=== PATIENT | female | born 1975 | race Caucasian/White ===

== ENCOUNTER 2016-08-30 09:28 | Day surgery (SDC) | payer MEDICAID ==
[2016-08-30] MEDS ORDERED: LIDOCAINE 1% 2 ML INJ ID PRN (10:28)
[2016-08-30] MEDS ORDERED: LR 1,000 ML IV SCH (10:30)
[2016-08-30] MEDS ORDERED: MIDAZOLAM 2 MG/2 ML VIAL IVP ONE (10:30)
[2016-08-30] MEDS ORDERED: MIDAZOLAM 2 MG/2 ML VIAL ONE ×4 (10:59→11:36)
[2016-08-30] MEDS ORDERED: BUPIVACAINE 0.25% 30 ML SDV ONE (11:02)
[2016-08-30] MEDS ORDERED: NA BICARBONATE 50 MEQ/50 ML VIAL ONE (11:02)
[2016-08-30] MEDS ORDERED: DEXAMETHASONE 10 MG/ML VIAL ONE (11:02)
[2016-08-30] MEDS ORDERED: TRIAMCINOLONE ACETONIDE 40 MG/ML VIAL ONE (11:02)
[2016-08-30] MEDS ORDERED: LIDOCAINE 1% 30 ML SDV ONE (11:02)
[2016-08-30] MEDS ORDERED: IOPAMIDOL (ISOVUE-M 200) 20 ML VIAL IV ONE (11:02)
[2016-08-30] MEDS ORDERED: fentaNYL 100 MCG/2 ML INJ ONE ×2 (11:04→11:34)
--- NOTE | 2016-09-04 09:55 | GPN ---
[f rep st] PROCEDURE NOTE DATE OF PROCEDURE: 08/30/2016 TIME: 11 a.m. HISTORY OF PRESENT ILLNESS: Ms. Dong presents for followup and possible repeat bilateral L3 throu gh L5 medial branch radiofrequency ablation. Her last such procedure was done on 06/23/2015, and sh e obtained significant relief of her low back pain as a result. She is not taking any blood thinner s or antibiotics and denies allergies to shellfish, latex, contrast dye, and iodine. She denies pre gnancy. PROCEDURE: Bilateral L3 and L4 medial branch block and bilateral L5 dorsal primary ramus radiofrequ ency ablations. DIAGNOSES: 1. Lumbar facet arthropathy. 2. Low back pain. SITE: Bilateral low back. ANESTHESIA: Local with Versed 10 mg and fentanyl 200 mcg IV. COMPLICATIONS: None. ESTIMATED BLOOD LOSS: Minimal. PRE-PROCEDURE CONSENT: The preprocedure consent was obtained after the risks, benefits, and alterna tives of the procedure were explained to the patient. The risks include, but are not limited to, ne rve injury, spinal cord injury, paralysis, brain injury or stroke, muscle injury, joint injury, infe ction, adverse medication effects, bleeding, increased pain, , and any other unforeseen consequ ences. The patient agreed and signed the consent for the procedure. PROCEDURE VERIFICATION AND TIMEOUT: Verbal verification of patient site and procedure was done. Al l present were in agreement. Please see nursing notes for time of time out. DESCRIPTION OF PROCEDURE: The patient was identified and placed in a prone position. Standard ayush tors were put in place. The patient's back was prepped with ChloraPrep and draped with sterile towe ls. Then using fluoroscopic guidance, the intersection of the lumbar transverse process and the sup erior articulating process was identified at each of the target levels. The skin and subcutaneous t issue over each target was anesthetized with 1-2 mL of 1% lidocaine using a 25-gauge, 1.5 inch needl e. Under fluoroscopic guidance, a 20-gauge, 100 mm radiofrequency needle was advanced percutaneously us ing intermittent AP and lateral fluoroscopy until the needle tip contacted os. Motor stimulation wa s tested up to 2 V, and there is no radicular pain or muscle contraction. After needle position was confirmed, 1 mL of 1% lidocaine was injected. Then after 90 seconds, a radiofrequency ablation was performed at 80 degrees centigrade for 90 seconds. 0.5 mL of a solution containing 6.5 mg triamcin olone in 0.25% bupivacaine was injected. The needle was re-styletted and removed. The exact same procedure was performed at each level with negative aspiration prior to each injectio n. The patient tolerated the procedure well and was monitored in the recovery room with no apparent com plications and was discharged home in good condition with a ride. She experienced no side effects f rom sedation and was instructed not to drive, operate heavy machinery, or make any life altering dec isions today. She was instructed to call our clinic with non-urgent concerns or 911 in an emergency . In particular, she was taught that new weakness or numbness, changes in bowel or bladder control, fever, and swelling or redness over the injection site are all urgent concerns that would warrant ca lling 911 or going to an emergency care facility. She verbalized understanding and was discharged h ome with postprocedure instructions. ASSESSMENT AND PLAN: Bilateral L3 and L4 medial branch and bilateral L5 dorsal primary ramus radiof requency ablation done today without complications. /[id number]/[id number]
== END 2016-08-30 12:35 | disposition home or self-care (01) ==
LOC: FSGY 09:28
PROVIDERS: ATTEND Anesthesiology
PROC: 015B3ZZ Destruction of Lumbar Nerve, Percutaneous Approach (ICD-10-PCS; principal; 2016-08-30 11:00)
DX: M54.5 Low back pain (principal); M12.88 Other specific arthropathies, not elsewhere classified, other specified site
CPT/HCPCS: J2250; J3010; J3301; Q9966